=== PATIENT | male | born 1950 | race Caucasian/White ===

== ENCOUNTER 2019-03-18 13:47 | Emergency (ER) | payer BC, SELFPAY ==
[2019-03-18 13:47] VITALS: BP 112/70; PULSE 87; RESP 16; TEMP 36.8; O2SAT 97; BMI 29.0
--- NOTE | 2019-03-18 14:01 | RAD_ITS ---
STUDY: X-RAY CHEST REASON FOR EXAM: Male, 68 years old. Cough TECHNIQUE: PA and lateral views of the chest. COMPARISON: None. FINDINGS: The lungs are clear and expanded. There is no demonstrated pleural abnormality. Normal size heart. Normal mediastinum and zachery. Normal visualized pulmonary arteries. Normal visualized aortic arch and descending thoracic aorta. There are diffuse degenerative changes of the visualized thoracic spine. Normal visualized ribs, clavicles, and shoulders. There is no demonstrated abnormality of the visualized soft tissue structures of the upper abdomen. RAD/Chest PA and Lateral IMPRESSION: Degenerative changes, as described above. No demonstrated acute cardiopulmonary process. Electronically Signed: Deanna Alanis MD at 15:14 EDT Tel , Service support ,
--- NOTE | 2019-03-18 14:01 | EKG12_ITS ---
Test Reason : NAUSEA Blood Pressure : / mmHG Vent. Rate : 073 BPM Atrial Rate : 073 BPM P-R Int : 158 ms QRS Dur : 110 ms QT Int : 386 ms P-R-T Axes : 047 -02 036 degrees QTc Int : 425 ms Normal sinus rhythm Incomplete right bundle branch block Confirmed by MEGAN MAHER, DECLAN ([id number]), editor producer BUZZ BAIRES ([id number]) on 03/21/2019 10:41:25 AM Referred By: PEACE/AMI/VINCENT Confirmed By:DECLAN GUZMAN MD
[2019-03-18] MEDS: 0.9% Normal Saline 1,000 ML 1000 ML IV (14:24)
[2019-03-18 14:32] LABS: Absolute Lymphocyte Count 0.97 X10^3/uL (0.83-4.51); Absolute Neutrophil Count 9.8 X10^3/uL (2.0-7.7); Basophil# 0.04 X10^3/uL; Basophil% 0.4 % (0-1); Eosinophil# 0.04 X10^3/uL; Eosinophils% 0.4 % (0-5); Hematocrit 45.8 % (40-54); Hemoglobin 16.1 g/dL (13.0-16.5); Lymphocyte # 0.97 X10^3/ul (4.0); Lymphocyte % 8.5 % (19-41); Mean Corp Hgb Conc 35.2 g/dL (32-36); Mean Corpuscular Hgb 33.8 pg (27.0-32.0); Mean Corpuscular Volume 96.2 fL (80-94); Mean Platelet Vol. 8.9 fl (6.2-12.0); Monocyte# 0.49 X10^3/uL; Monocyte% 4.3 % (0-10); NRBC Flagged by Analyzer 0 % (0-5); Neutrophil # 9.84 X10^3/uL (2.7-7.7); Neutrophil % 86.3 % (47-70); Platelet Count 199 K/mm3 (150-450); RBC Distribution Width CV 11.3 % (11.6-14.6); RBC Distribution Width SD 39.9 fl (35.1-43.9); Red Blood Count 4.76 M/mm3 (4.6-6.2); White Blood Count 11.4 K/mm3 (4.4-11.0)
[2019-03-18 14:45] LABS: Anion Gap 4 (5-15); BUN 13 mg/dL (7-18); BUN/Creat Ratio 15.9 RATIO (10-20); Calcium,Total 9.3 mg/dL (8.5-10.1); Chloride 102 mmol/L (98-107); Creatinine, Serum 0.82 mg/dL (0.70-1.30); EST Glomerular Filtration Rate 100 mL/min (>60); Est Glom Filt Rate - Afr Amer 121 mL/min (>60); Estimated Creatinine Clearance 82.85 ml/min; Glucose 105 mg/dL (74-106); Potassium 4.3 mmol/L (3.5-5.1); Sodium Level 136 mmol/L (136-145)
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
[2019-03-18 15:36] VITALS: BP 118/75; PULSE 80; RESP 16; O2SAT 98
== END 2019-03-18 15:40 | disposition home or self-care (01) ==
PROVIDERS: Emergency Provider Physician Assistant Medical
DX: R55 Syncope and collapse (principal)
CPT/HCPCS: 71046; 80048; 84484; 85025; 93005; 96360; 99284; J7030

== ENCOUNTER 2019-09-10 10:15 | Emergency (ER) | payer OTHER, BC, SELFPAY ==
[2019-09-10 10:16] VITALS: BP 156/94; PULSE 63; RESP 16; TEMP 36.2; O2SAT 97; BMI 29.7
--- NOTE | 2019-09-10 10:48 | ED.DCSUM_ITS ---
- ER Visit Summary Date of Service: 09/10/19 Chief Complaint: Fall History of Present Illness: The patient is a 69 M who presents after a fall that occurred today. Patient states he slipped on ice and landed on his left side. Patient denies any head injury or loss of consciousness. Patient states the nena n is over the left chest and abdomen. Patient describes the pain as aching. Patient states pain is worse with movement. Patient denies any paresthesias or weakness. Patient denies any nausea or vomiting. Patient denies any visual changes. Patient denies any headaches or weakness. Physical Examination: Vital signs are stable. Patient is afebrile. Patient is in no acute distress. Musculoskeletal exam reveals tenderness over the left lateral chest wall. There is no edema or ecchymosis. There is no bony crepitance or step-off. Oral mucosa is pink and moist. Neck is supple. Trachea is midline. There is no JVD. Heart was regular rate and rhythm. Lungs are clear and equal bilaterally. Abdomen is soft. Bowel sounds are normal. There is minimal tenderness. There is no rebound or guarding noted. Cranial nerves II through XII are intact. There are no focal motor or sensory deficits noted. Test Results: X-rays of the left ribs were obtained. There is no acute fracture. These were interpreted by the radiologist and myself. Emergency Department Course and Treatment: Patient was advised of his x-ray findings. Patient was instructed to use ice to the area. Patient was instructed to take Tylenol as needed for pain. Patient was instructed to follow-up with his primary care physician in 5 to 7 days. Patient understood and was agreeable with the plan. All questions were answered. Disposition: Discharge home Impression: Chest wall contusion This note was generated with [employer] dictation software. It may contain incorrect words, spelling, and punctuation that were not noted in review of the chart prior to signing ED Disposition - Plan for ED Patient: Disposition: Home or Assisted Living Diagnosis: Chest wall contusion Instructions: Chest Wall Contusion Referrals: Keeley Oakes MD [Primary Care Provider] - 5-7 Days
--- NOTE | 2019-09-10 10:55 | RAD_ITS ---
STUDY: X-RAY - UNILATERAL RIBS ( LEFT ) WITH CHEST REASON FOR EXAM: Male, 69 years old. FALL, ANTERIOR MID LEFT RIB PAIN TECHNIQUE - RIBS: 4 view(s) of the ribs. TECHNIQUE - CHEST: Comparison is made with prior chest radiograph dated March 18, 2019. COMPARISON: None. FINDINGS - RIBS: Normal visualized ribs without a demonstrated fracture. FINDINGS - CHEST: The lungs are clear and expanded. There is thickening of the lateral pleural space of the left hemithorax. Normal size heart. Normal mediastinum and zachery. Normal visualized pulmonary arteries. Normal visualized aortic arch and descending thoracic aorta. Normal visualized thoracic spine. Normal visualized ribs, clavicles, and shoulders. There is no demonstrated abnormality of the visualized soft tissue structures of the upper abdomen. RAD/Ribs Uni Min 3V w/PA Chest IMPRESSION: RIBS: No definite rib fracture is seen. There is evidence of thickening of the lateral pleura in the left hemithorax. CHEST: Normal x-ray examination of the chest. Electronically Signed: Alex Mccauley, at 11:16 EST , Service support ,
[2019-09-10 12:41] VITALS: PULSE 87; RESP 16; O2SAT 96
== END 2019-09-10 12:42 | disposition home or self-care (01) ==
PROVIDERS: Emergency Provider Emergency Medicine; PCP Internal Medicine
DX: S20.212A Contusion of left front wall of thorax, initial encounter (principal); W00.0XXA Fall on same level due to ice and snow, initial encounter; Y93.9 Activity, unspecified; Y92.9 Unspecified place or not applicable
CPT/HCPCS: 71101; 99282

== ENCOUNTER 2021-11-04 15:00 | Outpatient (RCR) | payer OTHER, BC, SELFPAY ==
--- NOTE | 2021-09-30 16:11 | HP.PTEVAL_ITS ---
Patient's Visit Information DECLAN VOSS is a 71 year old M referred to Physical Therapy by JAZLYN Braga with a diagnosis of strain and contusion of the R shoulder. Date of Evaluation: 09/30/21 Physical Therapist: CARINA Hurt - Visit Plan Frequency: 2x /Week Duration: 5 weeks or 10 visits Plan: Plan: 2X/ week for 5 weeks with HEP for PROM, AAROM, Postural and scapular and RC strengthening with HEP. May use US, heat or E-stim PRN. 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 This occurred couple of weeks ago. He reports that he is having pain and feels that there is a lump on the top of his shoulder and he was reaching for something last night and he got pain down to his R elbow. He can not sleep on his R side. 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 He reports that he has fear of lifting with his R arm cause it is slip tender. He starts getting pain with lifting his arm over 90 degrees elevation. They did an x-ray and it showed bruising. He is progressivly getting better. He is Right handed. He has help with snow shoveling. - Pain R shoulder pain Pain Intensity (Out of 10): 4 Pain Intensity Range: 9 - Objective Posture: has rounded shoulders and slightly guarded with his R shoulder with movement. 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 R shoulder AROM: flex 140 degrees, L2 IR, 118 degrees abd, 25 degrees. L shoulder AROM: flex 115 degrees, L1 IR, 134 degrees abd, 35 degrees. R shoulder MMT: 3-/5 shoulder flex, 3-/5 abd, 4-/5 ER and 3-/5 IR (increase pain). L shoulder MMT: 4/5 shoulder flex, abd, ER and IR. Pt had increase pain with AA wand flexion in supine as well as standing wand abd if he went to far. Explained to pt to only go up to the pain but not through the pain. Pt had increased pain at first with scapular retraction but was able to do it painfree after about 20 reps. - Balance/Special Test Scores Quick DASH Score: 43.1800 - Rehabilitation Potential Rehabilitation Potential: Good - Anticipated Interventions Patient/Client Instruction: Educate patient on: Condition, Plan of Care For the Purpose of:: To decrease pain, To decrease swelling/inflammation, To increase ROM, To improve nutrient delivery to tissue, To improve muscle performance and motor function, To improve ability to perform ADL's, To increase tolerance to activity/condition/position, To improve performance and independence with ADL's, To decrease level of supervision to perform tasks, To improve ability of physical actions for home/community/work/leisure, To improve health of tissue, To decrease soft tissue restriction, To increase flexibility/ROM Therapeutic Exercise to Include: Strength training, Endurance training, Postural training, Flexibilty training, Neuromotor development, Passive ROM, Active ROM, Scapular Strength/Stabilization For the Purpose of:: To decrease pain, To increase ROM, To improve nutrient delivery to tissue, To improve muscle performance and motor function, To improve ability to perform ADL's, To increase tolerance to activity/condition/position, To improve performance and independence with ADL's, To decrease level of supervision to perform tasks, To improve ability of physical actions for home/community/work/leisure, To improve health of tissue, To decrease soft tissue restriction, To increase flexibility/ROM Manual Therapy Techniques to Include: Mobilization, Passive ROM, Soft tissue mobilization For the Purpose of:: To decrease pain, To decrease swelling/inflammation, To increase ROM, To improve nutrient delivery to tissue, To improve muscle performance and motor function, To improve ability to perform ADL's, To increase tolerance to activity/condition/position, To improve performance and independence with ADL's, To improve ability of physical actions for home/community/work/leisure, To improve health of tissue, To decrease soft tissue restriction, To increase flexibility/ROM IF ES: Yes Cryotherapy (ice pack, ice massage): Yes Thermo therapy (hot pack): Yes Ultrasound (thermal/non thermal): Yes For the Purpose of:: To decrease pain, To increase ROM, To improve nutrient delivery to tissue, To improve health of tissue Thank you for the opportunity to evaluate your patient. For Medicare and Medicare HMO plans, please review the plan of care and approve it. It will need to be FAXED BACK to us at [phone] for Medicare purposes. For Medicare only, by signing this I certify the plan of care. Please let me know if there are questions or concerns regarding this plan of care. Physician Signature: Date:
--- NOTE | 2021-10-28 16:05 | HP.PTEVAL ---
Patient's Visit Information DECLAN VOSS is a 71 year old M referred to Physical Therapy by JAZLYN Braga with a diagnosis of strain and contusion of the R shoulder. Date of Evaluation: 09/30/21 Physical Therapist: CARINA Hurt - Visit Plan Frequency: 2x /Week Duration: 5 weeks or 10 visits Plan: add inchworms along the wall with orange. Plan: 2X/ week for 5 weeks with HEP for PROM, AAROM, Postural and scapular and RC strengthening with HEP. May use US, heat or E-stim PRN. 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 This occurred couple of weeks ago. He reports that he is having pain and feels that there is a lump on the top of his shoulder and he was reaching for something last night and he got pain down to his R elbow. He can not sleep on his R side. 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 He reports that he has fear of lifting with his R arm cause it is silo tender. He starts getting pain with lifting his arm over 90 degrees elevation. They did an x-ray and it showed bruising. He is progressivly getting better. He is Right handed. He has help with snow shoveling. - Pain R shoulder pain Pain Intensity (Out of 10): 0 Pain Intensity Range: 9 Comment: with movement - Objective Posture: has rounded shoulders and slightly guarded with his R shoulder with movement. R handed: R speech pathology assistant strength 70# L speech pathology assistant strength 80#. R shoulder AROM: flex 140 degrees, L2 IR, 118 degrees abd, 25 degrees. L shoulder AROM: flex 115 degrees, L1 IR, 134 degrees abd, 35 degrees. R shoulder MMT: 3-/5 shoulder flex, 3-/5 abd, 4-/5 ER and 3-/5 IR (increase pain). L shoulder MMT: 4/5 shoulder flex, abd, ER and IR. Pt had increase pain with AA wand flexion in supine as well as standing wand abd if he went to far. Explained to pt to only go up to the pain but not through the pain. Pt had increased pain at first with scapular retraction but was able to do it painfree after about 20 reps. - Balance/Special Test Scores Quick DASH Score: 43.1800 - Goals Goal 1:: I HEP Goal Time Frame: 4-6 Weeks Goal 2:: Sit with upright posture during treatment sessions Goal Time Frame: 4-6 Weeks Goal 3:: Decrease R shoulder pain to 1/10 after a long day at work. Goal Time Frame: 4-6 Weeks Goal 4:: Increase R shoulder pain by 1/2 muscle grade (at time of eval: R shoulder MMT: 3-/5 shoulder flex, 3-/5 abd, 4-/5 ER and 3-/5 IR (increase pain) Goal Time Frame: 4-6 Weeks - Rehabilitation Potential Rehabilitation Potential: Good - Anticipated Interventions Patient/Client Instruction: Educate patient on: Condition, Plan of Care For the Purpose of:: To decrease pain, To decrease swelling/inflammation, To increase ROM, To improve nutrient delivery to tissue, To improve muscle performance and motor function, To improve ability to perform ADL's, To increase tolerance to activity/condition/position, To improve performance and independence with ADL's, To decrease level of supervision to perform tasks, To improve ability of physical actions for home/community/work/leisure, To improve health of tissue, To decrease soft tissue restriction, To increase flexibility/ROM Therapeutic Exercise to Include: Strength training, Endurance training, Postural training, Flexibilty training, Neuromotor development, Passive ROM, Active ROM, Scapular Strength/Stabilization For the Purpose of:: To decrease pain, To increase ROM, To improve nutrient delivery to tissue, To improve muscle performance and motor function, To improve ability to perform ADL's, To increase tolerance to activity/condition/position, To improve performance and independence with ADL's, To decrease level of supervision to perform tasks, To improve ability of physical actions for home/community/work/leisure, To improve health of tissue, To decrease soft tissue restriction, To increase flexibility/ROM Manual Therapy Techniques to Include: Mobilization, Passive ROM, Soft tissue mobilization For the Purpose of:: To decrease pain, To decrease swelling/inflammation, To increase ROM, To improve nutrient delivery to tissue, To improve muscle performance and motor function, To improve ability to perform ADL's, To increase tolerance to activity/condition/position, To improve performance and independence with ADL's, To improve ability of physical actions for home/community/work/leisure, To improve health of tissue, To decrease soft tissue restriction, To increase flexibility/ROM IF ES: Yes Cryotherapy (ice pack, ice massage): Yes Thermo therapy (hot pack): Yes Ultrasound (thermal/non thermal): Yes For the Purpose of:: To decrease pain, To increase ROM, To improve nutrient delivery to tissue, To improve health of tissue Thank you for the opportunity to evaluate your patient. For Medicare and Medicare HMO plans, please review the plan of care and approve it. It will need to be FAXED BACK to us at [phone] for Medicare purposes. For Medicare only, by signing this I certify the plan of care. Please let me know if there are questions or concerns regarding this plan of care. Physician Signature: Date:
--- NOTE | 2021-11-04 15:38 | HP.PTDCSUM ---
It has been my pleasure to treat DECLAN VOSS referred by JAZLYN Braga, with the diagnosis of strain and contusion of the R shoulder for a total of 11 visit(s). Discharge Date: 11/04/21 Please see the following information for a summary of their discharge status. Subjective: Pt reports that he is doing good. He has a Dr appt tomm night. He reports that he is doing his HEP at home. He reports that he still can not lay on his R side. R shoulder pain Pain Intensity (Out of 10): 0 % Improvement: 90 Objective/Function: R shoulder MMT: 4+/5 shoulder flex, 4+/5 abd, 4+/5 ER and 4+/5 IR (no pain) Goal 1:: I HEP Goal Progress: Goal Met Goal 2:: Sit with upright posture during treatment sessions Goal Progress: Goal Met Goal 3:: Decrease R shoulder pain to 1/10 after a long day at work. Goal Progress: Goal Met Goal 4:: Increase R shoulder pain by 1/2 muscle grade (at time of eval: R shoulder MMT: 3-/5 shoulder flex, 3-/5 abd, 4-/5 ER and 3-/5 IR (increase pain) Goal Progress: Goal Met Plan: DC PT to HEP Discharge Comments: DC PT to HEP If there are questions or concerns regarding this patient's physical therapy, please feel free to call me at [phone]. Thank you for the referral of this patient. Sincerely, Shagufta Patricio, MPT Balance/Gait/Functional tests - Balance/Special Test Scores Quick DASH Score: 11.3625
== END 2021-11-04 19:00 | disposition home or self-care (01) ==
LOC: PT 15:00
PROVIDERS: PCP Internal Medicine; Referring Provider Physician Assistant; Visit Provider Physician Assistant
DX: S46.911D Strain of unspecified muscle, fascia and tendon at shoulder and upper arm level, right arm, subsequent encounter (principal); S40.011D Contusion of right shoulder, subsequent encounter
CPT/HCPCS: 97110; 97161

== ENCOUNTER 2022-08-15 05:24 | Emergency (ER) | payer OTHER, SELFPAY ==
[2022-08-15 05:26] VITALS: BP 134/79; PULSE 99; RESP 16; TEMP 36.9; O2SAT 93; BMI 28.2
--- NOTE | 2022-08-15 05:32 | CT_ITS ---
STUDY: CT ABDOMEN AND PELVIS WITHOUT CONTRAST REASON FOR EXAM: Male, 72 years old. Pain RADIATION DOSAGE (If Supplied By Facility): CTDIvol = ( 7.33 ) mGy, DLP = ( 433.21 ) mGycm TECHNIQUE: Transaxial images were obtained from the dome of the diaphragm to the symphysis pubis without oral contrast, and without intravenous contrast. Sagittal and coronal images were reconstructed. Individualized dose optimization techniques were used for this CT. COMPARISON: None. FINDINGS: The visualized lung bases are unremarkable. The visualized portions of the heart are within normal limits. Normal liver. Normal gallbladder and extrahepatic biliary system. Normal spleen. Normal pancreas. Normal bilateral adrenal glands. Normal right kidney. Normal left kidney. Normal visualized stomach. Normal small intestine. Normal colon. The appendix is visualized and appears normal. Normal abdominal aorta. Normal inferior vena cava. Normal retroperitoneum. Normal urinary bladder. Normal abdominal wall. Normal osseous structures. CT/Abdomen/Pelvis without Cont IMPRESSION: Normal unenhanced CT of the abdomen and pelvis. Electronically Signed: Sandip Browne MD at 6:14 EST ,
--- NOTE | 2022-08-15 05:33 | ED.VIS.BACK ---
HPI History of Present Illness Chief Complaint: Back Informant: patient Narrative Narrative: Patient presents with right flank pain. This started early this morning. He was already awake. He states he has not fallen or tripped or hurt himself in any way. He has gotten up to urinate at night which is not typical for him. However its not burning or change in color or odor. He has had no fevers chills sweats. All the pain was in the right flank. It was relatively sharp. It did not radiate around to the front of the abdomen or groin. He states the pain is completely gone now. He has not received anything for it but did take some Tylenol at home. He has had some sore back and neck issues in the past but has not done anything to cause this. Motion does not seem to bother it. He denies ever having kidney stone. He did not get lightheaded or near syncopal with this. PFSH PFSH Home Medications rosuvastatin 10 mg tablet 10 mg PO DAILY 08/15/22 [History Last Taken Unknown] Allergy/AdvReac Type Severity Reaction Status Date / Time No Known Allergies Allergy Verified 09/18/21 15:12 Social History Smoking Status: Never smoker ROS ROS ED Constitutional Constitutional ED: Denies chills or fever(s) ENT ENT ED: Denies rhinorrhea or sore throat Cardiovascular Cardiovascular: Denies chest pain, palpitations or racing heartbeat Respiratory/Chest Respiratory/Chest: Denies dyspnea Gastrointestinal Gastrointestinal: Denies abdominal pain, nausea or vomiting Genitourinary Genitourinary ED: Reports urinary frequency; Denies dysuria or hematuria Musculoskeletal Musculoskeletal: Reports back pain; Denies myalgias or neck pain Integumentary Denies rash Neurologic Neurologic: Denies paresthesias or weakness Endocrine Endocrinology: Denies polydipsia or polyuria Hematologic/Lymphatic Hematologic/Lymphatic: Denies easy bleeding or easy bruising Allergic/Immunologic Allergic/Immunologic ED: Denies urticaria EXAM Physical Exam Const Vital Signs: 08/15/22 05:26 Temperature 98.4 F Temperature Source Oral Pulse Rate 99 Respiratory Rate 16 Blood Pressure 134/79 H Blood Pressure Mean 97 Pulse Ox 93 Oxygen Delivery Method Room Air Positive well nourished and well developed Constitutional Narrative: Patient looks comfortable but he states he has 0 pain right now General Appearance ED: well developed and NAD HEENT Reports moist mucous membranes Eyes General Eye ED: Negative for pale conjunctiva or scleral icterus Neck no JVD Resp normal respiratory effort Auscultation: Negative for rales, rhonchi or wheezes Cardio regular rate and regular rhythm GI normal to inspection, nondistended, normoactive bowel sounds, soft to palpation, non-tender, non-distended and no masses GI Narrative: No pulsatile mass or bruit Inspection: Negative for abdominal distention Narrative: No notable CVA tenderness Back/Spine normal to inspection and no thoracic nor lumbar tenderness Back/Spine Narrative: No bony or midline tenderness General Back: Negative for CVA tenderness Extremity normal to inspection Extremity Narrative: Normal peripheral pulses and color. No mottling General Extremety ED: Negative for edema or tenderness General Extremity: Negative for edema Neuro no sensory deficits noted Psych mental status grossly normal Skin no rashes or lesions noted MDM MDM MDM Narrative Medical decision making narrative: Patient CT is negative. CBC shows normal white count hemoglobin and platelets. Electrolytes are normal. This includes kidney function. Glucose is minimally up at 110. Urine is clear with 0-5 white cells and 0 red cells. No evidence of infection. I rechecked the patient. He still feels well. He now tells me that he was shoveling snow over the past couple days and may have pulled something. He also has been doing sit ups recently and may have aggravated his back. But he still states is not hurting now. No indication of vascular abnormality by exam. I do not think he needs further work-up. He is comfortable just using ice and Tylenol. We discussed reasons to return and follow-up. Lab Data Attestation: I reviewed the patient's lab results. Labs: Laboratory Results - last 24 hr 08/15/22 08/15/22 08/15/22 05:39 05:39 05:39 WBC 5.3 RBC 4.56 L Hgb 15.0 Hct 44.1 MCV 96.7 H MCH 32.9 H MCHC 34.0 RDW Std Deviation 40.3 RDW Coeff of Grey 11.4 L Plt Count 185 MPV 9.3 Immature Gran % (Auto) 0.400 Neut % (Auto) 70.4 H Lymph % (Auto) 9.8 L [place] % (Auto) 17.9 H Eos % (Auto) 0.9 Baso % (Auto) 0.6 Absolute Neuts (auto) 3.8 Absolute Lymphs (auto) 0.52 L Nucleated RBC % 0 Sodium 137 Potassium 3.9 Chloride 105 Carbon Dioxide 28.0 Anion Gap 4 L BUN 13 Creatinine 0.79 Estim Creat Clear Calc 64.26 Est GFR (MDRD) Af Amer 125 Est GFR (MDRD) Non-Af 103 BUN/Creatinine Ratio 16.5 Glucose 110 H Calcium 8.9 Urine Color Yellow Urine Clarity Clear Urine pH 6.0 Ur Specific [place] 1.020 Urine Protein 30 H Urine Glucose (UA) Normal Urine Ketones 15 H Urine Occult Blood Negative Urine Nitrite Negative Urine Bilirubin Negative Urine Urobilinogen 1 H Ur Leukocyte Esterase 25 H Urine RBC 0 SEEN Urine WBC 0-5 SEEN Ur Squamous Epith Cells 0 SEEN Urine Bacteria 1+ Urine Mucus 3+ Radiography Diagnostic Testing: Clinical Impression(s) from Imaging Studies Abdomen/Pelvis CT 08/15/22 05:32 IMPRESSION: Normal unenhanced CT of the abdomen and pelvis. Electronically Signed: Sandip Browne MD at 6:14 EST Reading Location ID and State: [facility] / [place] Tel , Service support , CT scan of the abdomen looked at by me and read by radiology shows no acute process. He does not appear to have a hydroureter or stone along the path of his ureter. No explanation for symptoms are noted. Discharge Plan Triage Chief Complaint: Back ED Provider: Anders Bahena Dx/Rx/DC Orders Clinical Impression: Acute right-sided back pain Instructions: ED Back Pain (Acute or Chronic) Prescriptions: No Action rosuvastatin 10 mg tablet 10 mg PO DAILY Label Comments: TAKE 1 TABLET BY MOUTH ONCE DAILY Primary Care Provider: Keeley Oakes Referrals: Keeley Oakes MD [Primary Care Provider] - 3-5 Days if not improving Disposition Disposition: Home, Self Care
[2022-08-15 05:56] LABS: Red Blood Cells-Urine 0 SEEN /hpf (0-5); Squamous Epithelial Cells - UA 0 SEEN /hpf (0-5)
[2022-08-15 05:57] LABS: Absolute Lymphocyte Count 0.52 X10^3/uL (0.83-4.51); Absolute Neutrophil Count 3.8 X10^3/uL (2.0-7.7); Basophil# 0.03 X10^3/uL; Basophil% 0.6 % (0-1); Eosinophil# 0.05 X10^3/uL; Eosinophils% 0.9 % (0-5); Hematocrit 44.1 % (40-54); Lymphocyte # 0.52 X10^3/ul (0.83-4.51); Lymphocyte % 9.8 % (19-41); Mean Corpuscular Hgb 32.9 pg (27.0-32.0); Mean Corpuscular Volume 96.7 fL (80-94); Mean Platelet Vol. 9.3 fl (6.2-12.0); Monocyte# 0.95 X10^3/uL; Monocyte% 17.9 % (0-10); NRBC Flagged by Analyzer 0 % (0-5); Neutrophil # 3.75 X10^3/uL (2.7-7.7); Neutrophil % 70.4 % (47-70); POSITIVE DIFFERENTIAL YES; Platelet Count 185 K/mm3 (150-450); RBC Distribution Width CV 11.4 % (11.6-14.6); RBC Distribution Width SD 40.3 fl (35.1-43.9); Red Blood Count 4.56 M/mm3 (4.6-6.2); White Blood Count 5.3 K/mm3 (4.4-11.0)
[2022-08-15 05:58] LABS: Color, Urine Yellow (Yellow); Glucose, Dipstick Normal (Normal); Ketone-Dipstick 15 mg/dl (Negative); Leukocyte Esterase-Dipstick 25 /ul (Negative); Nitrite-Dipstick Negative (Negative); Occult Blood-Urine Negative /ul (Negative); Protein-Dipstick 30 mg/dl (Negative); Urine Bilirubin Dipstick Negative (Negative); Urine Clarity Clear (Clear); Urine Urobilinogen 1 mg/dl (Normal)
[2022-08-15 06:06] LABS: Differential Indicated SCAN CRITERIA MET
[2022-08-15 06:08] LABS: Bacteria 1+ /hpf (None Seen); Mucous, Urine 3+ /hpf (<or=2+); White Blood Cells 0-5 SEEN /hpf (0-5)
[2022-08-15 06:10] LABS: Anion Gap 4 (5-15); BUN 13 mg/dL (7-18); BUN/Creat Ratio 16.5 RATIO (10-20); Calcium,Total 8.9 mg/dL (8.5-10.1); Chloride 105 mmol/L (98-107); Creatinine, Serum 0.79 mg/dL (0.70-1.30); EST Glomerular Filtration Rate 103 mL/min (>60); Est Glom Filt Rate - Afr Amer 125 mL/min (>60); Estimated Creatinine Clearance 64.26 ml/min; Glucose 110 mg/dL (74-106); Potassium 3.9 mmol/L (3.5-5.1); Sodium Level 137 mmol/L (136-145)
[2022-08-15 06:51] LABS: Macrocytosis RARE
[2022-08-15 07:03] VITALS: BP 124/66; PULSE 72; RESP 15; O2SAT 98
== END 2022-08-15 07:05 | disposition home or self-care (01) ==
PROVIDERS: Emergency Provider Emergency Medicine; PCP Internal Medicine; Visit Provider Emergency Medicine
DX: M54.9 Dorsalgia, unspecified (principal); Z79.899 Other long term (current) drug therapy
CPT/HCPCS: 74176; 80048; 81001; 85025; 96360; 99285; J7030; A4216